=== PATIENT | male | born 1985 | race Two or more races ===

== ENCOUNTER 2020-05-15 07:04 | Emergency (ER) | payer MEDICAID, OTHER ==
[~2020-05-15] VITALS: Ht 170.2 cm; Wt 102.1 kg
[2020-05-15 07:18] VITALS: BP 132/87
[2020-05-15] MEDS ORDERED: IBUPROFEN 800 MG TAB PO ONE (08:00)
== END 2020-05-15 08:56 | disposition home or self-care (01) ==
LOC: EDSEX 07:04 → ER 07:04
DX: S92.355A Nondisplaced fracture of fifth metatarsal bone, left foot, initial encounter for closed fracture (principal); S93.402A Sprain of unspecified ligament of left ankle, initial encounter; Z88.5 Allergy status to narcotic agent; W18.39XA Other fall on same level, initial encounter; Y93.01 Activity, walking, marching and hiking; Y92.89 Other specified places as the place of occurrence of the external cause; Y99.8 Other external cause status
CPT/HCPCS: 29515; 73610; 73630

== ENCOUNTER 2024-09-24 08:49 | Emergency (ER) | payer MEDICAID ==
[~2024-09-24] VITALS: Ht 170.2 cm; Wt 100.2 kg
[2024-09-24 09:20] VITALS: BP 141/92; PULSE 78; RESP 18; TEMP 97; O2SAT 100
[2024-09-24 10:19] LABS: Basophils # (auto) 0 10 ^3/uL (0-0.2); Basophils % (auto) 0.2 % (0.0-2.0); Eosinophils # (auto) 0.2 10 ^3/uL (0-0.8); Eosinophils % (auto) 3.9 % (0.0-7.0); Hematocrit 49.4 % (41.0-53.0); Lymphocytes # (auto) 2.1 10 ^3/uL (0.4-5.4); Lymphocytes % (auto) 36.8 % (10.0-50.0); Mean Corpuscular Hemoglobin 32.7 pg (28.0-32.0); Mean Corpuscular Hgb Conc. 34.5 g/dL (32.0-36.0); Mean Corpuscular Volume 94.9 fL (80.0-100.0); Monocytes # (auto) 0.4 10 ^3/uL (0-1.3); Monocytes % (auto) 6.6 % (0.0-12.0); Neutrophils % (auto) 52.5 % (37.0-80.0); Nucleated Red Blood Cells % 0.2 %; Platelet Count (auto) 293 10^3/uL (140-450); Red Blood Cells 5.21 10^6/uL (4.5-5.90); White Blood Cell 5.8 10^3/uL (4.4-10.8)
[2024-09-24 10:35] LABS: Chloride 104 mmol/L (98-107); Potassium 4.6 mmol/L (3.5-5.1); Sodium 141 mmol/L (136-145)
[2024-09-24 10:36] LABS: Anion Gap 7 (5-15); Carbon Dioxide 30 mmol/L (20-31)
--- NOTE | 2024-09-24 10:38 | DVH ---
CLINICAL HISTORY: right leg pain COMPARISON: None TECHNIQUE: Compression evaluation and color doppler evaluation of the deep veins of the right lower e xtremity was performed. Evaluation for augmentation and flow characteristics with doppler pulse wave imaging was performed. FINDINGS: This examination demonstrates normal compression, augmentation, and phasic flow of the rig ht lower extremity. No evidence for echogenic thrombus within the right common femoral, femoral, and popliteal veins. The posterior tibial veins demonstrated normal compression and color flow at the lev el of the calf. IMPRESSION: There is no evidence for DVT in the right lower extremity.
[2024-09-24 10:41] LABS: BUN/Creatinine Ratio 13.7 (10.0-20.0); Blood Urea Nitrogen 13 mg/dL (9-23)
[2024-09-24 10:54] LABS: Glucose 109 mg/dL (74-106)
[2024-09-24] MEDS ORDERED: IBUP-1454 PO (11:10)
--- NOTE | 2024-09-24 11:10 | ED.PDOC ---
Musculoskeletal HPI Comments 59-year-old male presents with a chief complaint of atraumatic right lower extremity pain located to the right lateral proximal fibula. Pain started one day ago and pain is described as moderate and tingling burning sensation. Pain does not radiate. Possible causes unknown the patient reports he was started on testosterone for his low testosterone two days ago. No other injury noted. Denies chest pain shortness of breath. Chief Complaint: Lower Extremity Time Seen by MD: 09:05 Reviewed Notes: Nurses Notes, Medications, Allergies Allergies: Coded Allergies: Hydromorphone (Verified Allergy, Unknown, 05/15/20) Information Source: Patient Mode of Arrival: Ambulatory Past Medical History PAST MEDICAL HISTORY: Denies Surgical History: Denies all surgeries Family History Family History: Reviewed,noncontributory to illness Social History Smoker: Non-Smoker Lives In: Home All Other Systems: Reviewed and Negative (per hpi) Physical Exam General Appearance: No Apparent Distress, Normal HEENT: Normal ENT Inspection, Pharynx Normal, TMs Normal Neck: Full Range of Motion, Non-Tender, Normal, Normal Inspection Respiratory: Chest Non-Tender, Lungs Clear, No Accessory Muscle Use, No Re spiratory Distress, Normal Breath Sounds Cardiovascular: No Edema, No JVD, No Murmur, No Gallop, Normal Peripheral Pulses, Regular Rate/Rhythm Breast Exam: Deferred Gastrointestinal: No Organomegaly, Non Tender, No Pulsatile Mass, Normal Bowel Sounds, Soft Genitalia: Deferred Pelvic: Deferred Rectal: Deferred Extremities: No calf tenderness, Normal capillary refill, Normal inspection, Normal range of motion, Non-tender, No pedal edema Musculoskeletal : Location: Right Extremity Location: Tibia (Reproducible leg pain with plantar flexion and dorsiflexion. Swelling. No erythema.) Apperance: Normal Neurologic: Alert, No Motor Deficits, Normal Affect, Normal Mood, No Sensory Deficits Cerebellar Function: Normal Reflexes: Normal Skin: Dry, Normal Color, Warm Lymphatic: No Adenopathy Was a procedure done? Was a procedure done?: No Differential Diagnosis EXT Differential Diagnosis: Deep Vein Thrombosis, Sprain, Other X-Ray, Labs, Meds, VS Vital Signs Date Time Temp Pulse Resp B/P (MAP) Pulse Ox O2 Delivery O2 Flow Rate FiO2 09/24/24 09:20 78 18 100 Room Air 09/24/24 09:20 97.0 78 18 141/92 (108) 100 97.0 09/24/24 09:02 97.0 78 18 141/92 (108) 100 Lab Test 09/24/24 09:59 Range/Units White Blood Count 5.8 4.4-10.8 10^3/uL Red Blood Count 5.21 4.5-5.90 10^6/uL Hemoglobin 17.0 13.5-17.5 g/dL Hematocrit 49.4 41.0-53.0 % Mean Corpuscular Volume 94.9 80.0-100.0 fL Mean Corpuscular Hemoglobin 32.7 H 28.0-32.0 pg Mean Corpuscular Hemoglobin Concent 34.5 32.0-36.0 g/dL Red Cell Distribution Width 13.0 11.8-14.3 % Platelet Count 293 140-450 10^3/uL Mean Platelet Volume 7.8 6.9-10.8 fL Neutrophils (%) (Auto) 52.5 37.0-80.0 % Lymphocytes (%) (Auto) 36.8 10.0-50.0 % Monocytes (%) (Auto) 6.6 0.0-12.0 % Eosinophils (%) (Auto) 3.9 0.0-7.0 % Basophils (%) (Auto) 0.2 0.0-2.0 % Neutrophils # (Auto) 3.0 1.6-8.6 10 ^3/uL Lymphocytes # (Auto) 2.1 0.4-5.4 10 ^3/uL Monocytes # (Auto) 0.4 0-1.3 10 ^3/uL Eosinophils # (Auto) 0.2 0-0.8 10 ^3/uL Basophils # (Auto) 0 0-0.2 10 ^3/uL Nucleated Red Blood Cells 0.2 % Sodium Level 141 136-145 mmol/L Potassium Level 4.6 3.5-5.1 mmol/L Chloride Level 104 98-107 mmol/L Carbon Dioxide Level 30 20-31 mmol/L Anion Gap 7 5-15 Blood Urea Nitrogen 13 9-23 mg/dL Creatinine 0.95 0.700-1.30 mg/dL Glomerular Filtration Rate Calc 106 >90 mL/min BUN/Creatinine Ratio 13.7 10.0-20.0 Serum Glucose 109 H 74-106 mg/dL Calcium Level 10.0 8.7-10.4 mg/dL PATIENT: ORALIA CHUACCT: [id number]: [id number] : 1985 LOC: ER ROOM / BED: / AGE / SEX: 39 / M ADM STATUS: REG ER SERVICE [id number] ORDERING PHYSICIAN: NAYAN PAINTING NP PROCEDURE(s): RLDVT - RT Lower DVT REASON: right leg pain ORDER NUMBER(s): [id number], ACCESSION NUMBER(s): [id number] CLINICAL HISTORY: right leg pain COMPARISON: None TECHNIQUE: Compression evaluation and color doppler evaluation of the deep veins of the right lower extremity was performed. Evaluation for augmentation and flow characteristics with doppler pulse wave imaging was performed. FINDINGS: This examination demonstrates normal compression, augmentation, and phasic flow of the right lower extremity. No evidence for echogenic thrombus within the right common femoral, femoral, and popliteal veins. The posterior tibial veins demonstrated normal compression and color flow at the level of the calf. IMPRESSION: There is no evidence for DVT in the right lower extremity. ATED BY: JEISON JAMA DO DICTATED DATE/TIME: 09/24/24 1036 SIGNED BY: JEISON JAMA DO SIGNED DATE/TIME: 09/24/24 1036 CC: X-Ray, Labs, Meds, VS Comment Rash physical examination findings are consistent with strain however imaging was ordered to rule out serious pathology such as a DVT. Labs ordered to rule out infectious process. Labs and imaging reviewed by co Patient is stable for discharge at this time. Conservative treatment recommended. [id number] anti-inflammatories as needed External notes reviewed. Test results and diagnostic imaging interpreted. All diagnostic findings, discharge care, education and instructions provided Follow-up with PCP in 2 to 3 days Patient verbalized understanding and agreed to treatment plan Vital signs stable, afebrile, no acute distress noted Patient ambulatory with strong steady gait Advised to return precautions for any new or worsening symptoms, return to ER immediately for re-evaluation Patient is aware that the purpose of this visit was for an acute medical emergency requiring emergent stabilization. Chronic conditions, including malignancies have not been ruled out. Patient is instructed to follow up with PCP as directed and discharge instructions for continued care and workup. If unable to arrange follow-up, patient is to return to the emergency department for reassessment. Patient (parent or legal guardian if applicable) was given verbal and written discharge instructions and acknowledges understanding. Time of 1ST Reevaluation: 11:05 Reevaluation 1ST: Improved Patient Education/Counseling: Diagnosis, Treatment Family Education/Counseling: Diagnosis, Treatment Departure 1 Departure Time of Disposition: 11:07 Impression: Primary Impression: Gastrocnemius strain Qualified Codes: S86.111A - Strain of other muscle(s) and tendon(s) of posterior muscle group at lower leg level, right leg, initial encounter Disposition: HOME / SELF CARE / HOMELESS Condition: Fair e-Prescriptions Ibuprofen (Ibuprofen) 600 Mg Tab 1 TAB PO TID for 10 Days, #30 TAB 0 Refills Prov: NAYAN PAINTING NP 09/24/24 Critical Care Note Critical Care Time?: No Stability Stability form required: No Heart Score Heart Score: Heart Score Response (Comments) Value History N/A 0 EKG N/A 0 Age N/A 0 Risk Factors N/A 0 Troponin N/A 0 Total 0 NAYAN PAINTING NP Sep 24, 2024 11:10
== END 2024-09-24 11:15 | disposition home or self-care (01) ==
LOC: EEVIPCON 08:49 → ER 08:49
DX: S86.111A Strain of other muscle(s) and tendon(s) of posterior muscle group at lower leg level, right leg, initial encounter (principal); Z88.5 Allergy status to narcotic agent; X58.XXXA Exposure to other specified factors, initial encounter; Y93.89 Activity, other specified; Y92.89 Other specified places as the place of occurrence of the external cause; Y99.8 Other external cause status
CPT/HCPCS: 36415; 80048; 85025; 93971